=== PATIENT | female | born 1975 | race Two or more races ===

== ENCOUNTER 2020-06-22 13:45 | Emergency (ER) | payer OTHER ==
[~2020-06-22] VITALS: Ht 160 cm; Wt 66.2 kg
[2020-06-22 14:05] VITALS: BP 136/85
--- NOTE | 2020-06-22 14:15 | NUR ---
ED Nurse Note: Patient from home and walked in due to bright red vaginal bleeding and weakness. Pt relates taht she is on her 4th day of menstrual period and was sent by her PCP due to low Hgb of 6.0. Patient is AAO x4, ambulatory with non labored breathing.
--- NOTE | 2020-06-22 14:33 | Emergency Room Report ---
History of Present Illness General Chief Complaint: Abnormal Labs Source: Patient Present Illness HPI Patient presents from urgent care for anemia that is symptomatic with a hemoglobin of 6. She has had heavy bleeding from fibroids for 2 years. She had to have transfusions a year ago. She has been feeling some weakness, dizziness when she stands and ECG shortness of breath. She denies fevers or chills. T here is no dysuria. Her last menstruation was June 19 and normal for her. She went through 7 to 10 days pads a day passing clots also. She bled for 3 days. Past medical history of hypercholesterolemia controlled by diet. The patient denies exposure to Covid positive contacts. No fevers, chills, sore throat, chest pain, palpitations, nausea, vomiting, diarrhea, dysuria, abdominal pain, joint pain, rashes, depression, anxiety, visual changes, headache. Allergies: Coded Allergies: No Known Allergies (Unverified , 06/22/20) COVID-19 Screening Contact w/high risk pt: No Experienced COVID-19 symptoms?: No COVID-19 Testing performed HEDGE TRIMMER: No Patient History Past Medical History: see triage record, other - Uterine fibroids Social History: Denies: smoking, alcohol use, drug use Social History Narrative From home. Born in [place] and has a 9-year-old who is being watched by her ex Reviewed Nursing Documentation: PMH: Agreed; PSxH: Agreed Nursing Documentation-PMH Past Medical History: No History, Except For Review of Systems All Other Systems: negative except mentioned in HPI Physical Exam Vital Signs Date Time Temp Pulse Resp B/P (MAP) Pulse Ox O2 Delivery O2 Flow Rate FiO2 06/22/20 14:05 98.8 97 22 136/85 (102) 98 Room Air Sp02 EP Interpretation: reviewed, normal General Appearance: well appearing, no apparent distress, GCS 15, non-toxic Head: normocephalic Eyes: bilateral eye PERRL, bilateral eye EOMI, bilateral eye conjunctivae pale ENT: other - Wearing a mask Neck: supple Respiratory: lungs clear, normal breath sounds Cardiovascular #1: regular rate, rhythm Cardiovascular #2: 2+ radial (R) Gastrointestinal: normal inspection, normal bowel sounds, non tender, no mass, non-distended Genitourinary: no CVA tenderness Musculoskeletal: back normal, normal range of motion, gait/station normal Neurologic: alert, oriented x3, grossly normal Psychiatric: mood/affect normal Skin: warm/dry, pallor Procedures Critical Care Time Critical Care Time Total Critical Care Time: 30 min bedside evaluation and treatment excludes procedures (EKG). Reason for critical care: symptomatic anemia, blood transfusion (informed consent and monitoring/re-evaluations), treatment of UTI, discussion with transfer MD, discussion of AMA Possible complications: hypotension, hypertension, [place], shock, arrhythmias, metabolic acidosis, end organ damage, respiratory failure. Interventions: blood transfusion, discussion with patient more physician, AMA Course: Patient presents with symptomatic anemia. Found to have critical anemia. Discussion of informed consent with patient regarding transfusion. Discussion with HMO physician. Monitoring of patient during transfusion. Discussion with patient of risks of AMA. Consultations: nursing staff, EMS, HMO physician Performed by: Dr. Davalos Tolerated well condition = serious Medical Decision Making Diagnostic Impression: Primary Impression: Symptomatic anemia Additional Impressions: UTI (urinary tract infection) Qualified Codes: N30.00 - Acute cystitis without hematuria Fibroid uterus Qualified Codes: D25.9 - Leiomyoma of uterus, unspecified ER Course Patient presents with symptomatic anemia with history of fibroids. She seems to have compensated as she is not tachycardic at the moment. Patient needs evaluation with labs. As she is compensated she does not need to have IV fluids at the moment. We need to assess whether the patient needs to be admitted for transfusions. Hgb 7.0 Pyuria. Macrobid ordered. Discussed with Dr. Brooks for transfer to [facility]. Discussion with patient informed consent for blood transfusion. Patient monitored during blood transfusion. Patient refuses transport to another hospital. She states she is concerned about exposure to Covid at another hospital. She states she has had bad experiences regarding this in the past. Discussed risk of further hemorrhage a nd possible . Patient still decides to sign out AGAINST MEDICAL ADVICE. Discussion with patient regarding need for outpatient follow-up. Laboratory Tests Test 06/22/20 14:40 06/22/20 15:00 White Blood Count 9.6 K/UL (4.8-10.8) Red Blood Count 3.97 M/UL (4.20-5.40) L Hemoglobin 7.0 G/DL (12.0-16.0) L Hematocrit 23.4 % (37.0-47.0) L Mean Corpuscular Volume 59 FL (80-99) L Mean Corpuscular Hemoglobin 17.5 PG (27.0-31.0) L Mean Corpuscular Hemoglobin Concent 29.7 G/DL (32.0-36.0) L Red Cell Distribution Width 19.0 % (11.6-14.8) H Platelet Count 424 K/UL (150-450) Mean Platelet Volume 6.8 FL (6.5-10.1) Neutrophils (%) (Auto) % (45.0-75.0) Lymphocytes (%) (Auto) % (20.0-45.0) Monocytes (%) (Auto) % (1.0-10.0) Eosinophils (%) (Auto) % (0.0-3.0) Basophils (%) (Auto) % (0.0-2.0) Differential Total Cells Counted 100 Neutrophils % (Manual) 65 % (45-75) Lymphocytes % (Manual) 31 % (20-45) Monocytes % (Manual) 2 % (1-10) Eosinophils % (Manual) 1 % (0-3) Basophils % (Manual) 1 % (0-2) Band Neutrophils 0 % (0-8) Platelet Estimate Adequate Platelet Morphology Normal Hypochromasia 3+ Anisocytosis 1+ Microcytosis 1+ Prothrombin Time 11.2 SEC (9.30-11.50) Prothrombin Time INR 1.0 (0.9-1.1) Activated Partial Thromboplast Time 23 SEC (23-33) Sodium Level 138 MMOL/L (136-145) Potassium Level 3.5 MMOL/L (3.5-5.1) Chloride Level 104 MMOL/L (98-107) Carbon Dioxide Level 26 MMOL/L (21-32) Anion Gap 9 mmol/L (5-15) Blood Urea Nitrogen 13 mg/dL (7-18) Creatinine 0.5 MG/DL (0.55-1.30) L Estimated Glomerular Filtration Rate > 60 mL/min (>60) Glucose Level 113 MG/DL (74-106) H Calcium Level 8.6 MG/DL (8.5-10.1) Total Bilirubin 0.4 MG/DL (0.2-1.0) Aspartate Amino Transferase (AST) 21 U/L (15-37) Alanine Aminotransferase (ALT) 11 U/L (12-78) L Alkaline Phosphatase 128 U/L (46-116) H Total Protein 7.7 G/DL (6.4-8.2) Albumin 3.6 G/DL (3.4-5.0) Globulin 4.1 g/dL Albumin/Globulin Ratio 0.9 (1.0-2.7) L Lipase 123 U/L (73-393) Urine Color Yellow Urine Appearance Slightly cloudy Urine pH 5 (4.5-8.0) Urine Specific [place] 1.025 (1.005-1.035) Urine Protein 1+ (NEGATIVE) H Urine Glucose (UA) Negative (NEGATIVE) Urine Ketones Negative (NEGATIVE) Urine Blood 5+ (NEGATIVE) H Urine Nitrite Negative (NEGATIVE) Urine Bilirubin Negative (NEGATIVE) Urine Urobilinogen Normal MG/DL (0.0-1.0) Urine Leukocyte Esterase 1+ (NEGATIVE) H Urine RBC 2-4 /HPF (0 - 2) H Urine WBC 5-10 /HPF (0 - 2) H Urine Squamous Epithelial Cells Many /LPF (NONE/OCC) H Urine Bacteria Moderate /HPF (NONE) H Urine HCG, Qualitative Negative (NEGATIVE) Last Vital Signs Date Time Temp Pulse Resp B/P (MAP) Pulse Ox O2 Delivery O2 Flow Rate FiO2 06/22/20 19:12 98.2 86 16 122/76 99 Room Air Status: improved Disposition: AGAINST MEDICAL ADVICE Condition: Serious Scripts Nitrofurantoin Monohyd/M-Cryst* (MACROBID 100 MG*) 100 Mg Capsule 100 MG ORAL EVERY 12 HOURS, #14 CAP Prov: Guru Davalos MD 06/22/20 Vit No.124/Iron/FA ( Vitamin Tablet) 1 Each Tablet 1 EACH PO DAILY, #30 TAB 1 Refill Prov: Guru Davalos MD 06/22/20 Guru Davalos MD Jun 22, 2020 14:33
--- NOTE | 2020-06-22 14:59 | NUR ---
ED Nurse Note: Collected blood and urine then sent.
[2020-06-22 15:18] LABS: HEMATOCRIT 23.4 % (37.0-47.0); MEAN CORPUSCULAR VOLUME 59 FL (80-99); PLATELET COUNT 424 K/UL (150-450); RED BLOOD COUNT 3.97 M/UL (4.20-5.40); WHITE BLOOD COUNT 9.6 K/UL (4.8-10.8)
[2020-06-22 15:22] LABS: APPEARANCE,URINE SLIGHTLY CLOUDY; BILIRUBIN, URINE NEGATIVE (NEGATIVE); GLUCOSE, URINE (UA) NEGATIVE (NEGATIVE); KETONES,URINE NEGATIVE (NEGATIVE); LEUKOCYTE ESTERASE ,URINE 1+ (NEGATIVE); NITRITE,URINE NEGATIVE (NEGATIVE); PH,URINE 5 (4.5-8.0); PROTEIN,URINE 1+ (NEGATIVE); UROBILINOGEN,URINE NORMAL MG/DL (0.0-1.0)
[2020-06-22 15:25] LABS: ANION GAP 9 mmol/L (5-15); BLOOD UREA NITROGEN 13 mg/dL (7-18); CALCIUM 8.6 MG/DL (8.5-10.1); CARBON DIOXIDE 26 MMOL/L (21-32); CHLORIDE 104 MMOL/L (98-107); CREATININE 0.5 MG/DL (0.55-1.30); POTASSIUM 3.5 MMOL/L (3.5-5.1); SODIUM 138 MMOL/L (136-145)
[2020-06-22 15:25] LABS: COLOR,URINE YELLOW
[2020-06-22 15:29] LABS: ALANINE AMINOTRANSFERASE 11 U/L (12-78); ALBUMIN 3.6 G/DL (3.4-5.0); ALBUMIN/GLOBULIN RATIO 0.9 (1.0-2.7); ALKALINE PHOSPHATASE 128 U/L (46-116); ASPARTATE AMINO TRANSFERASE 21 U/L (15-37); BILIRUBIN,TOTAL 0.4 MG/DL (0.2-1.0)
--- NOTE | 2020-06-22 16:59 | NUR ---
ED Nurse Note: Consent for blood transfusion signed by patient. Patient was informed to report any s/sx of transfusion reaction such as chest tightness, itching or SOB. Patient verbalized understanding of teachings.
[2020-06-22 17:00] VITALS: BP 121/67
[2020-06-22] MEDS ORDERED: PRENATAL VITAM1 EAC7 PO (17:02)
[2020-06-22] MEDS ORDERED: NITROFURANTOIN100 M2 ORAL (17:03)
--- NOTE | 2020-06-22 19:08 | NUR ---
HAND-OFF: Report given to Chioma YOST.
[2020-06-22 19:12] VITALS: BP 122/76
--- NOTE | 2020-06-22 19:12 | NUR ---
AMA: SEE AMA FORM. pt left AMA after disagreeing to be transferred from [facility] to another facility for continuity of care. ERMD informed pt of risks. Pt aware. Pt signed AMA form. IV line and ID band removed with out complications. Pt given RX and discharge paperworks.
== END 2020-06-22 19:12 | disposition left against medical advice (07) ==
LOC: EMR 14:30 → EDBEDREQ 14:36 → EMR 19:12 → CANBEDREQ 19:12
DX: D64.89 Other specified anemias (principal); N30.00 Acute cystitis without hematuria; D25.9 Leiomyoma of uterus, unspecified; E78.00 Pure hypercholesterolemia, unspecified; Z53.29 Procedure and treatment not carried out because of patient's decision for other reasons
CPT/HCPCS: 36415; 80053; 81003; 81025; 83690; 85007; 85025; 85610; 85730; 86850; 86900; 86901; 86920; 87086; P9016; Z7502; 99291